=== PATIENT | female | born 1975 | race Caucasian/White ===

== ENCOUNTER → 2016-06-09 | Outpatient (CLI) | payer OTHER ==
[~2016-06-09] MED LIST: IBUP-232 PO; PREN29TA PO
== END ==
LOC: CLAB 06:38
PROVIDERS: ATTEND Obstetrics & Gynecology
DX: O36.0110 Maternal care for anti-D [Rh] antibodies, first trimester, not applicable or unspecified (principal)
CPT/HCPCS: 36415; 86850; 86900; 86901; 90384; 96372; J2790

== ENCOUNTER 2016-08-19 22:37 | Inpatient (IN) | payer OTHER ==
[~2016-08-19] VITALS: Ht 167.6 cm; Wt 78.0 kg
--- NOTE | 2016-08-19 22:46 | PD ---
HPI Chief Complaint Leakage of fluid Travel History International Travel<30 Days: No Contact w/Intl Traveler<30Days: No Known Affected Area: No History of Present Illness HPI G1 at 36w 6d presents with c/o LOF. Reports irregular contractions. Denies VB. Good FM. Denies problems this . Para: 0 : 1 Last Menstrual Period: Aug 19, 2016 History Past Medical History Medical History: Denies Significant Hx Past Surgical History Surgical History: No Previous Surgery Family History Family History: Negative Social History Alcohol Use: No Tobacco Use: No Substance Abuse: No Allergies-Medications Comments NKDA Physical Exam AFVSS BP 127/73 Narrative GENERAL: Well-nourished, well-developed patient. SKIN: Warm and dry. HEAD: Normocephalic and atraumatic. EYES: No scleral icterus. No injection or drainage. ENT: No nasal drainage noted. Mucous membranes pink. Airway patent. NECK: Supple, trachea midline. No JVD. CARDIOVASCULAR: Regular rate and rhythm without murmurs, gallops, or rubs. RESPIRATORY: Breath sounds equal bilaterally. No accessory muscle use. BREASTS: Bilateral exam showed no masses , no retractions, no nipple discharge. ABDOMEN/GI: Abdomen soft, non-tender, bowel sounds present, no rebound, no guarding Gravid to [-] weeks size Fundal Height: [-] GENITOURINARY: SSE- pooling noted, clear External Genitalia: intact and normal in appearance BUS glands: [-] Cervix: [-] Dilatation: [0] Effacement: [60] Station: [-3] Presentation: [-] Membranes: [intact or ruptured] Uterine Contractions: [irregular] FHT's: Category: [1] Baseline: [140s] Reactive: [yes] Variability: [moderate] Decels: [none] EXTREMITIES: No cyanosis or edema. BACK: Nontender without obvious deformity. No CVA tenderness. NEUROLOGICAL: Awake and alert. Motor and sensory grossly within normal limits. Five out of 5 muscle strength in all muscle groups. Normal speech. MDM Interpretation(s) IUP at 36w 6d, PROM. Plan Will admit. Dr. Begum notified. Diagnosis Diagnosis: Primary Impression: 36 weeks gestation of Additional Impressions: Leakage of amniotic fluid Irregular uterine contractions Jacqueline Mcclain MD Aug 19, 2016 22:46
[2016-08-19] MEDS ORDERED: LACTATED RINGER'S 1000 ML INJ 1,000 ML IV PRN (23:21)
[2016-08-19] MEDS: LACTATED RINGER'S 1000 ML INJ 1,000 ML IV SCH (23:21)
[2016-08-19] MEDS ORDERED: PENICILLIN G POTASSIUM INJ 5,000,000 UNITS in SODIUM CHLORIDE 0.9% INJ 100 ML IV ONE (23:30)
[2016-08-19] MEDS ORDERED: SODIUM CHLORID 0.9% 500 ML INJ 500 ML IV PRN (23:30)
[2016-08-19] MEDS ORDERED: OXYTOCIN 30 UNITS-500ML PREMIX 500 ML IV ONE (23:30)
[2016-08-19] MEDS ORDERED: MINERAL OIL 10 ML VIAL TOPICAL PRN (23:30)
[2016-08-19] MEDS ORDERED: LIDOCAINE HCL 1% 50 ML VIAL INFIL PRN (23:30)
[2016-08-19] MEDS ORDERED: CITRIC ACID-SODIUM CITRATE LIQ 30 ML UDC PO SCH (23:30)
[2016-08-19] MEDS ORDERED: LIDOCAINE HCL 1% 50 ML VIAL I-DERMAL PRN (23:30)
[2016-08-19] MEDS ORDERED: SODIUM CHLOR 0.9% 1000 ML INJ 1,000 ML IV PRN (23:41)
[2016-08-19 23:56] VITALS: BP 104/70; PULSE 74
[2016-08-20] VITALS (46 sets, daily range): BP systolic 85–127; BP diastolic 42–78; PULSE 58–81; RESP 18–20; TEMP 96.9–100.7
[2016-08-20 00:22] LABS: AUTOMATED NEUTROPHIL # 8.4 TH/MM3 (1.8-7.7); BASOPHIL # 0.1 TH/MM3 (0-0.2); BASOPHIL % 0.8 % (0.0-2.0); EOSINOPHIL # 0.1 TH/MM3 (0-0.4); EOSINOPHIL % 0.5 % (0.0-4.0); HEMATOCRIT 36.5 % (35.0-46.0); HEMO FLAGS DIFF FINAL; LYMPH % 17.8 % (9.0-44.0); MEAN CELL VOLUME 89.9 FL (80.0-100.0); MEAN CORPUSCULAR HEMOGLOBIN 31.5 PG (27.0-34.0); MEAN CORPUSCULAR HGB CONC 35.1 % (32.0-36.0); MONO % 4.6 % (0.0-8.0); NEUT % 76.3 % (16.0-70.0); PLATELET COUNT 211 TH/MM3 (150-450); RED BLOOD COUNT 4.05 MIL/MM3 (4.00-5.30); RED CELL DISTRIBUTION WIDTH 12.8 % (11.6-17.2); WHITE BLOOD COUNT 11.1 TH/MM3 (4.0-11.0)
[2016-08-20] MEDS ORDERED: PREN29TA PO (00:29)
[2016-08-20 01:44] LABS: BACTERIA, URINE OCC /hpf; BLOOD, URINE LARGE (NEG); GLUCOSE,URINE NEG (NEG); KETONE, URINE NEG (NEG); NITRITE,URINE NEG (NEG); PH, URINE 6.5 (5.0-8.5); RENAL EPITHELIAL CELLS 12 /hpf; SQUAMOUS EPITHELIAL CELL URINE 2 /hpf (0-5); URINE COLOR YELLOW (YELLW/STRAW)
[2016-08-20 01:46] LABS: COMMENT (UR) CULTURE INDICATED; CULTURE IF INDICATED CULTURE INDICATED
[2016-08-20] MEDS: PENICILLIN G POTASSIUM INJ 2,500,000 UNITS in SODIUM CHLORIDE 0.9% INJ 100 ML IV SCH ×5 (04:33→19:30)
[2016-08-20] MEDS: LACTATED RINGER'S 1000 ML INJ 1,000 ML IV SCH (04:34)
[2016-08-20 08:03] LABS: AMPHETAMINE, URINE NEG (NEG); BARBITURATES, URINE NEG (NEG); COCAINE, URINE NEG (NEG)
[2016-08-20] MEDS ORDERED: ONDANSETRON HCL 4 MG/2 ML VIAL ONE (08:22)
[2016-08-20] MEDS ORDERED: fentaNYL 2MCG-BUPIV 0.125% INJ 100 ML ONE (09:04)
[2016-08-20] MEDS ORDERED: ePHEDrine/NS 25 MG/5 ML SYR ONE (10:03)
[2016-08-20] MEDS ORDERED: ePHEDrine/NS 25 MG/5 ML SYR IV PRN (10:15)
[2016-08-20] MEDS ORDERED: NO SYSTEM NARCOTICS PRN (10:15)
[2016-08-20] MEDS ORDERED: DO NOT ADMINISTER ANTICOAGULANTS PRN (10:15)
[2016-08-20] MEDS ORDERED: fentaNYL 2MCG-BUPIV 0.125% 100 ML EPIDURAL SCH (10:15)
--- NOTE | 2016-08-20 10:53 | PD.LABORPN ---
Subjective Subjective comfortable with epidural Objective Vital Signs Vital Signs Date Time Temp Pulse Resp B/P Pulse Ox O2 Delivery O2 Flow Rate FiO2 08/20/16 10:38 20 08/20/16 10:38 96.9 08/20/16 10:30 72 102/57 08/20/16 10:30 70 08/20/16 10:25 68 08/20/16 10:25 70 08/20/16 10:25 107/60 08/20/16 10:20 62 08/20/16 10:20 64 119/58 08/20/16 10:15 72 08/20/16 10:15 80 105/56 08/20/16 10:10 79 110/55 08/20/16 10:10 69 08/20/16 10:05 72 08/20/16 10:05 73 115/63 08/20/16 10:00 67 08/20/16 10:00 72 110/55 08/20/16 09:55 67 109/63 08/20/16 09:55 67 08/20/16 09:50 67 08/20/16 09:45 66 08/20/16 09:17 58 127/78 08/20/16 09:17 20 08/20/16 08:27 64 117/73 08/20/16 08:27 20 08/20/16 07:30 98.1 08/20/16 07:26 59 116/67 08/20/16 07:25 20 08/20/16 06:30 18 08/20/16 06:00 18 08/20/16 05:30 18 08/20/16 04:37 62 102/53 08/20/16 04:37 98.0 18 08/20/16 03:20 65 104/51 08/20/16 03:19 18 08/20/16 03:19 98.2 Objective 6/100/-2 EFW 7 pelvis clinically adequate Assessment/Plan Assessment and Plan GBS + on PCN anticipate Cindy Reyes MD Aug 20, 2016 10:53
[2016-08-20] MEDS ORDERED: DIPHTH/TETANUS/ACEL PERTUSSIS (BOOSTER) 0.5 ML VIAL/PFS IM ONE (16:00)
[2016-08-20] MEDS ORDERED: MEASLES, MUMPS, RUBELLA VACCINE 0.5 ML VIAL SQ ONE (16:00)
--- NOTE | 2016-08-20 16:34 | PD.OB.DELI ---
Delivery Date: Aug 20, 2016 Anesthesia: Epidural Episiotomy: None Vaginal Delivery: Normal, Vacuum Presentation: Occiput anterior Nuchal Cord: x1 Delayed cord clamping (45 sec): Yes : Male One Minute : 8 Five Minute : 9 Placenta: Spontaneous delivery, Intact, 3 vessel cord (Ebl average), Other ( culture side very warm) Laceration: No lacerations Cindy Holloway MD Aug 20, 2016 16:34
[2016-08-20] MEDS ORDERED: BENZOCAINE 20% TOPICAL SPRAY 60 ML CAN TOPICAL PRN (16:45)
[2016-08-20] MEDS ORDERED: SODIUM CHLORIDE 0.9% FLUSH 10 ML FLUSH IV FLUSH PRN (16:45)
[2016-08-20] MEDS ORDERED: DOCUSATE SODIUM 50 MG/SENNA 8.6 MG TAB PO PRN (16:45)
[2016-08-20] MEDS ORDERED: WITCH HAZEL 50%/GLYCERIN 12.5% 40 PAD JAR TOPICAL PRN (16:45)
[2016-08-20] MEDS ORDERED: ALUMINUM/MAGNESIUM/SIMETH 30 ML CUP PO PRN (16:45)
[2016-08-20] MEDS ORDERED: ONDANSETRON ODT 4 MG TAB PO PRN (16:45)
[2016-08-20] MEDS ORDERED: ZOLPIDEM TARTRATE 5 MG TAB PO PRN (16:45)
[2016-08-20] MEDS ORDERED: ACETAMINOPHEN 325 MG TAB PO PRN (16:45)
[2016-08-20] MEDS ORDERED: AMMONIA AROMATIC INHALANT 0.33 ML ONE (19:25)
[2016-08-20] MEDS ORDERED: SODIUM CHLORIDE 0.9% FLUSH 10 ML FLUSH IV FLUSH SCH (21:00)
[2016-08-21] MEDS: LACTATED RINGER'S 1000 ML INJ 1,000 ML IV SCH ×2 (07:21→18:19)
--- NOTE | 2016-08-21 07:55 | HHI.OB ---
Subjective Post Day: 1 Remarks Doing well, Had small fever yesterday. Pain is well controlled, , Baby is good but was warm on delivery. Objective Vitals/I&O Vital Signs Date Time Temp Pulse Resp B/P Pulse Ox O2 Delivery O2 Flow Rate FiO2 08/20/16 21:00 99.0 08/20/16 19:10 100.7 20 08/20/16 19:10 73 108/67 08/20/16 14:31 81 118/70 08/20/16 14:15 98.9 20 08/20/16 14:00 67 121/61 08/20/16 13:45 75 119/68 08/20/16 13:30 69 117/63 08/20/16 13:23 20 08/20/16 13:15 72 108/54 08/20/16 13:00 69 103/52 08/20/16 12:45 67 106/48 08/20/16 12:30 98.7 08/20/16 12:30 70 107/52 08/20/16 12:28 20 08/20/16 12:15 68 116/64 08/20/16 12:00 69 106/60 08/20/16 11:45 68 106/60 08/20/16 11:44 18 08/20/16 11:30 70 103/45 08/20/16 11:26 68 103/42 08/20/16 11:17 74 85/46 08/20/16 11:15 65 90/46 08/20/16 11:00 59 95/46 08/20/16 10:45 65 116/64 08/20/16 10:38 20 08/20/16 10:38 96.9 08/20/16 10:30 72 102/57 08/20/16 10:30 70 08/20/16 10:25 68 08/20/16 10:25 70 08/20/16 10:25 107/60 08/20/16 10:20 62 08/20/16 10:20 64 119/58 08/20/16 10:15 72 08/20/16 10:15 80 105/56 08/20/16 10:10 79 110/55 08/20/16 10:10 69 08/20/16 10:05 72 08/20/16 10:05 73 115/63 08/20/16 10:00 67 08/20/16 10:00 72 110/55 08/20/16 09:55 67 109/63 08/20/16 09:55 67 08/20/16 09:50 67 08/20/16 09:45 66 08/20/16 09:17 58 127/78 08/20/16 09:17 20 08/20/16 08:27 64 117/73 08/20/16 08:27 20 Objective Remarks GENERAL: Well-nourished, well-developed patient. CARDIOVASCULAR: Regular rate and rhythm without murmurs, gallops, or rubs. RESPIRATORY: Breath sounds equal bilaterally. No accessory muscle use. ABDOMEN/GI: Abdomen soft, non-tender. Fundus: Firm, non-tender at umbilicus. GENITOURINARY: Light to moderate bleeding. EXTREMITIES: No cyanosis or edema, non-tender, without signs of DVT. Medications and IVs Current Medications Medications (Trade) Dose Ordered Sig/Elton Route Start Time Stop Time Status Last Admin Lactated Ringer's 1,000 ml @ 125 mls/hr Q8H IV 08/19/16 23:21 08/20/16 04:34 Lactated Ringer's 1,000 ml @ 3,000 mls/hr Q20M PRN IV 08/19/16 23:21 (NS 1000 ml Inj) 1,000 ml @ 100 mls/hr Q10H PRN IV 08/19/16 23:41 (fentaNYL INJ) 50 mcg Q1H PRN IV PUSH 08/19/16 23:30 08/20/16 07:55 Fentanyl Citrate 100 mcg 100 mcg Q1H PRN IV PUSH 08/19/16 23:30 (Pfizerpen-G Inj/ NS Inj) 100 ml @ 200 mls/hr Q4H IV 08/20/16 03:30 08/20/16 11:42 (Muri-Lube Oil) 10 ml UNSCH PRN TOPICAL 08/19/16 23:30 Miscellaneous Information No systemic narcotics to be given except... UNSCH PRN .XX 08/20/16 10:15 08/21/16 10:14 Miscellaneous Information DO NOT ADMINISTER ANY ANTICOAGUL... UNSCH PRN .XX 08/20/16 10:15 08/21/16 10:14 (fentaNYL 2MCG-BUPIV 0.125% INJ) 100 ml @ 0 mls/hr TITRATE EPIDURAL 08/20/16 10:15 (ePHEDrine/NS 25 MG/5 ML SYR) 10 mg UNSCH PRN IV 08/20/16 10:15 08/21/16 10:14 (NS Flush) 2 ml BID IV FLUSH 08/20/16 21:00 (NS Flush) 2 ml UNSCH PRN IV FLUSH 08/20/16 16:45 (Tylenol) 650 mg Q4H PRN PO 08/20/16 16:45 (Motrin) 600 mg Q6H PRN PO 08/20/16 16:45 (Americaine 20% Top Spr) 1 spray Q4H PRN TOPICAL 08/20/16 16:45 (Tucks Pads) 1 applic QID PRN TOPICAL 08/20/16 16:45 (Cheryl-Colace) 2 tab Q12H PRN PO 08/20/16 16:45 (Ambien) 5 mg HS PRN PO 08/20/16 16:45 (Mag-Al Plus Susp Liq) 15 ml Q8H PRN PO 08/20/16 16:45 (Zofran Odt) 4 mg Q6H PRN PO 08/20/16 16:45 Assessment/Plan Assessment and Plan PPD #1 Doing well Plan to go home tomorrow. Radha Ford MD Aug 21, 2016 07:55
[2016-08-21 08:00] VITALS: BP 114/66; PULSE 81; RESP 18; TEMP 98.3
[2016-08-21] MEDS: IBUPROFEN 600 MG TAB PO PRN ×2 (09:18→19:02)
--- NOTE | 2016-08-21 09:35 | HHI.DCPOC ---
Discharge Care Plan Your Health Problems Are: Vaginal delivery Report Symptoms to Your Doctor -Temperature above 100.5 degrees -Redness, of incision or excessive or foul smelling drainage -Unusual pain or calf pain -Increased vaginal bleeding -Painful or difficulty urinating -Feelings of extreme sadness or anxiety after 2 weeks Goals to Promote Your Health * To prevent worsening of your condition and complications * To maintain your health at the optimal level Directions to Meet Your Goals Take your medications as prescribed Follow your dietary instruction Follow activity as directed Ensure plenty of rest for recovery Drink fluids for hydration Keep your appointments as scheduled Take your immunizations and boosters as scheduled If your symptoms worsen call your PCP, if no PCP go to Urgent Care Center or Emergency Room Smoking is Dangerous to Your Health. Avoid second hand smoke Call the 24-hour crisis hotline for domestic abuse at Nikcie Dunn Aug 21, 2016 09:35
[2016-08-21] MEDS: PENICILLIN G POTASSIUM INJ 2,500,000 UNITS in SODIUM CHLORIDE 0.9% INJ 100 ML IV SCH ×2 (11:30→18:19)
[2016-08-21 20:15] VITALS: BP 101/66; PULSE 62; RESP 17; TEMP 97.7
[2016-08-22] MEDS: IBUPROFEN 600 MG TAB PO PRN (03:44)
[2016-08-22 08:40] VITALS: BP 122/74; PULSE 63; RESP 18; TEMP 98.4
[2016-08-22] MEDS ORDERED: IBUP-232 PO (14:48)
[2016-08-24 10:18] LABS: BATH SALTS (MDPV) UR NEG (NEG); ECSTASY (MDMA) UR NEG (NEG); GABAPENTIN UR NEG (NEG); HEROIN (6-ACETYLMORPHINE) UR NEG (NEG); HYDROMORPHONE U NEG (NEG); K2 SPICE UR NEG (NEG); OBMETHADONE UR NEG (NEG); OXYCODONE (PERCODAN) NEG (NEG); PHENCYCLIDINE URINE NEG (NEG)
== END 2016-08-22 15:24 | disposition home or self-care (01) | DRG 775 ==
LOC: HOBED 22:37 → H2EA 23:23 → H1EA 08-20 18:32
PROVIDERS: ADMIT Obstetrics & Gynecology; ATTEND Obstetrics & Gynecology
PROC: 10E0XZZ Delivery of Products of Conception, External Approach (ICD-10-PCS; principal; 2016-08-19)
PROC: 00HU33Z Insertion of Infusion Device into Spinal Canal, Percutaneous Approach (ICD-10-PCS; 2016-08-20)
PROC: 3E0R3CZ (ICD-10-PCS; 2016-08-20)
DX: O99.824 Streptococcus B carrier state complicating childbirth (principal); O69.81X0 Labor and delivery complicated by cord around neck, without compression, not applicable or unspecified; Z37.0 Single live birth; Z3A.37 37 weeks gestation of pregnancy
CPT/HCPCS: 59025; 80307; 81001; 84112; 85025; 85461; 86850; 86900; 86901; 87086; 88307; 90384; 90715; 99285; G0481; J2405; J2540; J2590; J2790; J3010; J7120